=== PATIENT | male | born 1995 | race African-American/Black ===

== ENCOUNTER 2020-02-03 13:50 | Inpatient (IN) | payer OTHER ==
[~2020-02-03] VITALS: Ht 167.6 cm; Wt 80.5 kg
[2020-02-03 14:10] VITALS: BP 122/73; TEMP 100.6
[2020-02-03 14:19] LABS: PLATELET COUNT 126 K/uL (142-355)
[2020-02-03 14:24] LABS: POTASSIUM 3.3 mmol/L (3.6-5.2)
[2020-02-03 19:36] VITALS: BP 135/71; TEMP 100.3; Ht 167.6 cm; Wt 80.5 kg
[2020-02-03 20:21] VITALS: BP 129/73; TEMP 98.3
[2020-02-04] VITALS (7 sets, daily range): BP systolic 111–123; BP diastolic 63–75; TEMP 97.7–98.4
[2020-02-04 06:21] LABS: PLATELET COUNT 126 K/uL (142-355)
[2020-02-04 06:26] LABS: POTASSIUM 3.6 mmol/L (3.6-5.2)
[2020-02-05 04:22] VITALS: BP 123/74; TEMP 98.8
[2020-02-05 06:17] LABS: POTASSIUM 3.7 mmol/L (3.6-5.2)
[2020-02-05 06:37] LABS: PLATELET COUNT 190 K/uL (142-355)
[2020-02-05 08:08] VITALS: BP 121/81; TEMP 98.4
[2020-02-05 12:00] VITALS: BP 130/85; TEMP 98.1
[2020-02-05 16:00] VITALS: BP 131/76; TEMP 98.2
[2020-02-05 20:00] VITALS: BP 112/67; TEMP 98.5
[2020-02-06] VITALS: BP 169/96; TEMP 98.8
[2020-02-06 03:54] VITALS: BP 126/82; TEMP 98.1
[2020-02-06 06:16] LABS: PLATELET COUNT 272 K/uL (142-355)
[2020-02-06 06:39] LABS: POTASSIUM 3.7 mmol/L (3.6-5.2)
[2020-02-06 08:00] VITALS: BP 134/80; TEMP 98.9
== END 2020-02-06 09:00 | disposition home or self-care (01) | DRG 177 ==
LOC: ED 13:50 → MED/SURG 16:30
PROVIDERS: Internal Medicine Endocrinology, Diabetes & Metabolism; ADMIT Family Medicine
DX: U07.1 COVID-19 (principal); J96.01 Acute respiratory failure with hypoxia; J18.8 Other pneumonia, unspecified organism; D72.828 Other elevated white blood cell count; E87.6 Hypokalemia; R73.9 Hyperglycemia, unspecified
CPT/HCPCS: 36415; 80053; 85027; 87502; 87651; 93005; 94668; 94760; 96374; 99284; J0456; J0696; J1100; J1650; J2930